=== PATIENT | female | born 1945 | race Caucasian/White ===

== ENCOUNTER → 2019-07-03 | Outpatient (CLI) | payer OTHER ==
[~2019-07-03] VITALS: Ht 154.9 cm; Wt 56.2 kg
[~2019-07-03] MED LIST: ALPRAZOLAM 0.50.5 M1 PO; AZO CRANBERRY1 EAC1 PO; BIOTIN 800 MCG1 EACH PO; CHLORTHALIDONE25 MG PO; DEXTROSTAT10 MG PO; DICLOFENAC SODI75 MG PO; DULOXETINE HCL60 MG PO; FLONASE 0.05%50 MCG NASAL; FUROSEMIDE 20 M20 MG PO; HYDROCODON-ACE1 EAC8 PO; KLOR-CON 1010 MEQ PO; LEVO-T100 MCG PO; LOSARTAN POTAS100 MG PO; ROPINIROLE HCL2 MG PO; TRAZODONE 150150 M1 PO; ZEGERID OTC 201 EACH PO; ZOLOFT100 MG PO
--- NOTE | ~2019-07-03 | HPC ---
Formerly [facility] [place] [address] PAIN MANAGEMENT CONSULTATION Name: HERIBERTO RENO Room #: REG [facility] MEzio.#: [id number] Admission: 07/03/19 Attend Phys: Jamisno Mojica MD Discharge: Date of : 45 Report #: [id number] THIS REPORT FOR: cc: Britney Vega MD,Jamison Barajas MD, MD ~ CC: Montez Vega DATE OF SERVICE: 07/03/2019 CHIEF COMPLAINT: Severe pain, left shoulder. The patient is here today to discuss opioids and the treatment of chronic intractable pain. I am seeing the patient today at the request of Dr. Garcia. She has severe pain in the left shoulder. This has been ongoing for many months. She was evaluated by Dr. Garcia and his notes were reviewed. She has significant osteoarthritic changes. She did not respond to cortisone injections and Dr. Garcia does not feel that she is a candidate for surgical interventions. She describes her pain as a 7-8/10, throbbing and shooting. It is worse with many different activities. She uses some ice and heat with effectiveness. MEDICATIONS: Cymbalta, trazodone, sertraline, alprazolam 0.5 mg p.r.n., dextroamphetamine 10 mg q.i.d., diclofenac 75 mg b.i.d., hydrocodone 7.5/325 taken only as needed. She received a prescription for 60 tablets nearly 6 months ago and a second prescription was just prescribed for her by Dr. Vega for 50 tablets this week. She does want to continue taking that medication and is here today to discuss it further. Levothyroxine, losartan, chlorthalidone, Lasix, fluticasone, potassium, Zegerid, Cranberry, biotin. ALLERGIES: SULFA. PAST MEDICAL AND SURGICAL HISTORY: Anemia, hypertension, severe depression, lifelong. She has been treated since age 38 [address] Freitas and sees him every 3 months. She has a history of gastroparesis, which occurred after a hiatal hernia, which was beset by complications. She was intubated in ICU for 21 days in 2011 at [facility]. Other surgeries include laminectomy in 1991 and in 1992 she has had bilateral knee replacements and a breast reduction[place] [address] PAIN MANAGEMENT CONSULTATION Name: HERIBERTO RENO Room #: REG [facility]#: [id number] Admission: 07/03/19 Attend Phys: Jamison Mojica MD Discharge: Date of : 45 Report #: [id number] SOCIAL HISTORY: She lives alone and independently. 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 She denies use of tobacco or alcohol. REVIEW OF SYSTEMS: Positive for fatigue, weakness, decreased appetite, frequent vomiting 2-3 times per week and diarrhea 3-4 times a week. Her history of gastroparesis, which is mechanical and related to surgery. She has nocturia, kidney stones. She has history of chronic depression, under treatment. PHYSICAL EXAMINATION: We are both wearing masks. Our exam was somewhat restricted. VITAL SIGNS: Blood pressure 113/79, heart rate 73, respirations 14, O2 sat 100, BMI is 23.4, GENERAL: She moves independently from sitting to standing position. Her gait is mildly antalgic. HEENT: Reveals normal eyes. Pupils equal, round, reactive to light. EOMs intact. NECK: Supple. She has no reproduction of pain into her shoulders all with flexion, extension, rotation, [id number] tilt. She has tenderness in the neck, but this is mild in the trapezius, splenius capitis and cervicalgia region bilateral. CHEST: Clear. CARDIAC: Rhythm regular. ABDOMEN: Soft. MUSCULOSKELETAL: Examination of the shoulder reveals restricted range of motion with external rotation. No pain with abduction, adduction against resistance. She has mild numbness in the hand, which is nondermatomal. Manufacturers Agent strength is adequate. IMPRESSION: Severe osteoarthritis, left shoulder causing chronic pain. This is mostly glenohumeral degenerative joint disease and acromioclavicular degenerative joint disease. RECOMMENDATIONS: She finds that if she takes hydrocodone at very low dose, pain is relieved. She does not wish to take it on a daily basis, but to have it available for his episodes of flare. She would take no more than 2 tablets per day. Her prior dose is 7.5/325 hydrocodone. Most recent prescription just this week. I discussed with her our program for medication management. We reviewed the CDC guidelines in some detail. We reviewed the opioid agreement that we use in our clinic. We talked about safeguarding medications. Goals of treatment include reductions in pain and improvement in daily function. The necessity of every 3-month follow up for opioids at low dose is generally considered reasonable. We would work up to that after a couple of visits as we developed knowledge of [address] [address] PAIN MANAGEMENT CONSULTATION Name: HERIBERTO RENO Room #: REG [facility] [place]#: [id number] Admission: 07/03/19 Attend Phys: Jamison Mojica MD Discharge: Date of : 45 Report #: [id number] each other and trust. She understands only one physician should prescribe his medications. We calculated her maximum morphine milligram equivalency per day at 7.5 x 2 were 15 MME. She did complete an opioid risk tool and score is 4, which puts her at moderate risk. This is based upon attention deficit disorder, depression, and a family history of alcoholism in her father. No prescriptions were written for today. This is an introductory visit. We spent about 45 minutes together. I plan to see her back in the clinic in 6 weeks and we will prescribe for her going forward. By: [id number] Jamison Mojica MD /nt
[2019-07-03 10:16] VITALS: BP 113/79
--- NOTE | 2019-07-03 11:08 | NUR ---
Pain Clinic Assessment: 1. History of Osteoarthritis: Left Lower Extremity Left Upper Extremity Right Lower Extremity Right Upper Extremity History of Rheumatoid Arthritis: Not Applicable 2. Height: 5 ft. 1 in. 154.9 cm. Weight: 124.0 lb. oz. 56.246 kg. Patient's BMI: 23.4 3. Vital Signs: BP: 113/79 Pulse: 73 Resp: 14 Temp: 02 Sat: 100 ECG Mon: 4. Pain Intensity: 8 5. Fall Risk: Dizziness: N Needs help standing or walking: Y Fallen in the last 3 months: N Fall risk comments: 6. Patient on Blood Thinner: None 7. History of Hypertension: Y 8. Opioid Therapy greater than 6 weeks: Y Opiate Contract Signed: 07/03/19 9. Risk Assessment Tool Provided: Opioid Risk Tool 10. Functional Assessment Tool: MOD 11. Recreational Drug Use: Never Drug Type: Tobacco Use: Never Smoker Tobacco Type: Amount or Packs/day: How Many Years: Alcohol Use: No Frequency: Quant:
== END ==
LOC: PAIN 10:00
DX: M19.012 Primary osteoarthritis, left shoulder (principal); M25.512 Pain in left shoulder; G89.29 Other chronic pain; M19.90 Unspecified osteoarthritis, unspecified site; Z88.2 Allergy status to sulfonamides; Z79.899 Other long term (current) drug therapy

== ENCOUNTER → 2019-08-28 | Outpatient (CLI) | payer OTHER ==
[~2019-08-28] VITALS: Ht 152.4 cm; Wt 57.2 kg
[~2019-08-28] MED LIST changes: +HYDROCODONE-AP1 EA11 PO; +REGLAN10 MG PO
[2019-08-28 09:46] VITALS: BP 133/60
--- NOTE | 2019-08-28 09:59 | NUR ---
Pain Clinic Assessment: 1. History of Osteoarthritis: Left Lower Extremity Left Upper Extremity Right Lower Extremity Right Upper Extremity History of Rheumatoid Arthritis: Not Applicable 2. Height: 5 ft. 0 in. 152.4 cm. Weight: 126.2 lb. oz. 57.244 kg. Patient's BMI: 24.6 3. Vital Signs: BP: 133/60 Pulse: 50 Resp: 14 Temp: 02 Sat: 100 ECG Mon: 4. Pain Intensity: 7 5. Fall Risk: Dizziness: N Needs help standing or walking: Y Fallen in the last 3 months: N Fall risk comments: 6. Patient on Blood Thinner: None 7. History of Hypertension: Y 8. Opioid Therapy greater than 6 weeks: Y Opiate Contract Signed: 07/03/19 9. Risk Assessment Tool Provided: 4-MODERATE 10. Functional Assessment Tool: 11. Recreational Drug Use: Never Drug Type: Tobacco Use: Never Smoker Tobacco Type: Amount or Packs/day: How Many Years: Alcohol Use: No Frequency: Quant:
--- NOTE | 2019-08-29 08:57 | HPC ---
[facility] [place] [address] PAIN MANAGEMENT CONSULTATION Name: HERIBERTO RENO Room #: REG [facility] [place]#: [id number] Admission: 08/28/19 Attend Phys: Joanna Nick Discharge: Date of : 45 Report #: [id number] THIS REPORT FOR: cc: Britney Vega MD, Sarah Beth MD Hocker,Joanna FREEDMAN ~ CC: Jamison Garcia DATE OF SERVICE: 08/28/2019 CHIEF COMPLAINT: Left shoulder pain. HISTORY OF PRESENT ILLNESS: This is a 73-year-old female who returns to the pain clinic to discuss opioid medication management. She is reporting to me today that she believes her primary care doctor would be willing to write for her hydrocodone that she takes for her shoulder pain. She is unsure that she needs to continue seeing Dr. Mojica for pain management medications if her primary care doctor is willing to write for them. The patient states that her left shoulder and arm are the most problematic, especially when moving. She has had injections from Dr. Garcia in the past that has not been effective and she is not a surgery candidate. She feels that the medications have been beneficial, though she has been out for a couple of weeks. Currently, stating her pain is 7/10, but when she does take her hydrocodone twice a day, it is decreased. Her pain is worse with elevating her arm and activity with her left arm. She feels that heating pad is beneficial, though, she wears it all night long when she is sleeping. She reports constant achy and tingly feeling in her shoulder. ALLERGIES: SULFA, ADHESIVE TAPE. CURRENT LIST OF MEDICATIONS: Reglan, biotin, cranberry, Zegerid, potassium, Flonase, Lasix, chlorthalidone, losartan, levothyroxine, Requip, hydrocodone 7.5, Voltaren 75 mg, alprazolam, sertraline, trazodone and Cymbalta. PQRS: 1. She has osteoarthritis in her upper and lower extremities. Denies any rheumatoid arthritis. 2. Height is 5 feet, weight is 126, BMI is 24. 3. Vital signs, blood pressure 133/60, pulse is 50, respirations 14, oxygen sat is 100. 4. Pain score is 7/10. 5. Denies dizziness. Does use a cane for ambulation, has not fallen in the last 3 months. 6. The patient is not on any blood thinners, [place] [address] PAIN MANAGEMENT CONSULTATION Name: HERIBERTO RENO Room #: [facility]#: [id number] Admission: 08/28/19 Attend Phys: Joanna Nick Discharge: Date of : 45 Report #: [id number] hypertension. Her opioid therapy is greater than 6 weeks; therefore, an opioid signed contract is on the chart. Risk assessment is moderate. Functional assessment is 43/70. 7. Recreational drug use, she denies. She is not a smoker and does not drink alcohol. According to the prescription monitoring system, her last prescription fill was from her primary care doctor, Britney Vega in June. She has not had any prescriptions filled since that time. PHYSICAL EXAMINATION: GENERAL: This is a well-developed, well-nourished 73-year-old female who appears her stated age. She is alert and orientated, placing her pain score at 7/10 today. HEENT: Reveals normal eyes. Pupils equal, reactive to light. She is wearing a mask. MUSCULOSKELETAL: She has restrictions in her range of motion with external rotation of her left shoulder. No pain with abduction. She has no numbness in her hand currently. Her stunt person is appropriate. Upper extremity strength judged to be 5/5. She is using a cane for ambulation. IMPRESSION: 1. Severe osteoarthritis of the left shoulder. 2. Degenerative joint disease. 3. Opioid medication management. We reviewed the fact that opiate medications are being used to provide analgesia adequate to support activities of daily living, not attempting to achieve a specific pain score on the 0-10 Visual Analog Scale. The current opiate medications are providing sufficient analgesia to allow the patient to participate in activities of daily living. The patient is not exhibiting any aberrant behavior suggestive of drug diversion. The patient is not having any adverse reactions to medications. The patient is not suffering from daytime somnolence or mental acuity changes. The patient is managing opiate-induced constipation with appropriate [id number] agents and dietary considerations. The patient was counseled on concern for caution with operating a motor vehicle while using opiate medications. PLAN: 1. We did discuss treatment options with the patient today. At her last visit, which was the initial consult with Dr. Jamison Mojica, we did discuss taking over writing her opioid medications. At that time, she had just filled a prescription from Dr. Vega and was not needing a prescription. Since that time, she has run out of her opioid medication and has been without now for several weeks per her report. She is stating today, she is unsure why she is coming to our clinic if her primary doctor will write for her medications. I [facility] [address] [place] [address] PAIN MANAGEMENT CONSULTATION Name: HERIBERTO RENO Room #: REG [facility] [place]#: [id number] Admission: 08/28/19 Attend Phys: Joanna Nick Discharge: Date of : 45 Report #: [id number] agree with the patient if she finds that her primary care doctor, is willing continue her hydrocodone scripts that will lessen her number of doctors that she needs to visit, but since she is out of her medications today, I am offering to refill her medications by Dr. Mojica for 1 month; therefore, she has time to reach out to her primary care doctor and set an appointment. 2. Today, Dr. Mojica will send electronically hydrocodone 7.5/325, #60. This is a 1-month supply. If the patient does find from her primary care doctor that she is not willing to continue this medication, she is instructed to call our office prior to running out of medications to make an appointment with me. We will discuss continuing her medications at that time. If not, we will void her contract and she will return only on an as needed basis. The patient verbalizes understanding of this and is thankful for the prescription today. The patient is seen in collaboration with Dr. Jamison Mojica. <ELECTRONICALLY SIGNED> By: Joanna Nick 08/29/19 [id number] Joanna Nick /nt
== END ==
LOC: PAIN 07:56
PROVIDERS: ATTEND Clinical Nurse Specialist Adult Health
DX: M19.012 Primary osteoarthritis, left shoulder (principal); M19.90 Unspecified osteoarthritis, unspecified site; F11.20 Opioid dependence, uncomplicated; Z88.2 Allergy status to sulfonamides; Z88.8 Allergy status to other drugs, medicaments and biological substances; Z79.899 Other long term (current) drug therapy